=== PATIENT | male | born 1965 | race Caucasian/White ===

== ENCOUNTER 2017-08-19 19:57 | Observation (INO) ==
[2017-08-19] MEDS ORDERED: Levofloxacin 750 MG/150 ML 750 MG/150 ML BAG IVPB ONE (20:47)
[2017-08-19] MEDS ORDERED: Ipratropium/Albuterol Neb 3 ML IH ONE (20:47)
[2017-08-19] MEDS ORDERED: 0.9 % Sodium Chloride 1,000 ML IVC ONE (20:47)
[2017-08-19] MEDS ORDERED: methylPREDNISolone 125 MG/2 ML VIAL IVP ONE (20:47)
--- NOTE | 2017-08-19 20:53 | Emergency Department Note ---
Disposition Clinical Impression: COPD exacerbation Disposition: Admitted As Inpatient Condition: Fair Forms: ED Satisfaction Letter Time of Disposition: 22:33 (Dr Montes [facility]) URI/Sore Throat HPI - General Chief Complaint: ED Fever Stated Complaint: fever, cough Time Seen by Provider: 08/19/17 20:35 Source: patient, family Mode of arrival: ambulatory Limitations: no limitations Nursing Notes Reviewed: Yes Vital Signs Reviewed: Yes - History of Present Illness HPI Narrative: 52-year-old with a history of lung surgery who presents to the emergency room for the past 4 years is had no major upper respiratory complaints. Patient states that he is now having cough congestion shortness of breath patient denies any swelling or edema in the leg states that he has had fever chills wheezing states he can get his air in but can get about he said this could be an exacerbation of his COPD or bronchitis or it could even be pneumonia which she is afraid of because of the fevers and chills. He denies any blurred vision or double vision. He is having heavy rhinorrhea. He denies though diarrhea melena hematochezia hematemesis. He has shortness of breath and coughing with activity he denies history of DVT denies any additional complaints with complete entire review of systems but does state that everything he has tried at home [id number] is not working Pt Subjective Complaint: fever, cough, flu symptoms, rhinorrhea, nasal congestion Onset (ago): day(s) Duration: constant, gradually worsening Severity: moderate Severity scale (1-10): 6 Improves with: nothing Worsens with: nothing If sputum, description: watery Associated symptoms: Reports: fever, chills, myalgias, rhinorrhea, nasal congestion, sore throat, cough, shortness of breath. Denies: voice changes, diaphoresis, headache, stiff neck, chest pain, abdominal pain, nausea, vomiting , diarrhea, dysuria, rash, epistaxis, ear pain Treatments prior to arrival: none - Related Data Home Medications Medication Instructions Recorded Confirmed Gabapentin [Neurontin] 800 mg PO TID 03/17/15 08/19/17 Ibuprofen [Motrin] 800 mg PO Q8HR PRN 03/17/15 08/19/17 clonazePAM [Klonopin] 2 mg PO TID 03/17/15 08/19/17 Allergies Allergy/AdvReac Type Severity Reaction Status Date / Time Hydromorphone [From Dilaudid] AdvReac Catherineinati Verified 08/19/17 20:34 ng All systems ED: reviewed and negative except as stated. Review of Systems: As Per HPI Constitutional: Denies: fever, chills, weakness Eyes: Denies: eye pain, eye discharge ENT ED: Denies: ear pain, throat pain Cardiovascular: Denies: chest pain, palpitations, dyspnea on exertion Respiratory: Reports: cough, dyspnea, wheezes Gastrointestinal: Denies: abdominal pain, nausea, vomiting Genitourinary: Denies: urgency, dysuria, frequency Musculoskeletal: Denies: back pain, neck pain Integumentary: Denies: rash, abrasion, lesions Neurological: Denies: headache, weakness Psychiatric: Denies: anxiety, depression Endocrine: Denies: fatigue, heat or cold intolerance Hematological/Lymphatic: Denies: easy bleeding Allergic/Immunologic: Denies: facial swelling URI PMH - Past Medical History Medical history: Reports: GERD, hypertension, pulmonary embolus, other Surgical history: Reports: orthopedic, other (right tibial/fibula fracture, left arm fracture, RLE MRSA infection), other (right lung surgery (empyema, blood clot)) Psychiatric history: Reports: anxiety - Social History Smoking Status: Current every day smoker Alcohol use: Reports: none Drug use: Reports: none Physical Exam - General Limitations: no limitations General appearance: alert, anxious, in distress (mild) - Head Head exam: atraumatic, normocephalic, normal inspection - Eye Eye exam: Present: normal appearance, PERRL, EOMI - ENT ENT exam: normal exam, normal oropharynx, mucous membranes moist, TM's normal bilaterally, normal external ear exam - Neck Neck exam: Present: normal inspection, full ROM, trachea midline - Chest Chest inspection: Present: normal inspection, symmetric chest wall rise - Respiratory Respiratory exam: Present: wheezes, accessory muscle use, prolonged expiratory phase - Cardiovascular Cardiovascular exam: Present: regular rate, normal rhythm, normal heart sounds - Abdominal Exam Abdominal exam: Present: soft, Non-Tender, normal bowel sounds. Absent: mass, pulsatile mass - Extremities Exam Extremities exam: Present: normal inspection, full ROM, normal capillary refill. Absent: tenderness, pedal edema, joint swelling, calf tenderness - Expanded Lower Extremity Exam Neurovascular/Tendon exam: Present: normal capillary refill, normal fine/light touch Gait: observed and normal - Back Exam Back exam: Present: normal inspection, full ROM. Absent: muscle spasm - Neurological Exam Neurological exam: Present: alert, oriented X3, CN II-XII intact, normal gait - Psychiatric Psychiatric exam: Present: normal affect, normal mood, anxious - Skin Skin exam: Present: warm, dry, intact, normal color Course Course Narrative: Patient was seen and examined chest x-ray and labs were ordered patient received a DuoNeb treatment with little improvement of his respiratory still very tight wheezy but was able to rest a little bit with that he was when he first presented. Patient is having no chest pain no chest pressure but is unable to catch his breath and appears that he is having exacerbation of his COPD and needs IV steroids and bronchodilator for treatment to help break it open so that he can breathe easier due to the fact he has some significantly diminished breath sounds as result we will start talked to Dr. Montes for admission and orders will be done Vital Signs Temperature 99.6 F 08/19/17 20:35 Pulse Rate 96 08/19/17 20:35 Respiratory Rate 16 08/19/17 20:35 Blood Pressure 167/96 08/19/17 20:35 O2 Sat by Pulse Oximetry 95 08/19/17 20:35 Temperature 99.6 F 08/19/17 20:35 Pulse Rate 96 08/19/17 20:35 Respiratory Rate 16 08/19/17 20:35 Blood Pressure 167/96 08/19/17 20:35 O2 Sat by Pulse Oximetry 95 08/19/17 20:35 Oxygen Delivery Oxygen Delivery Room Air Upper Respiratory Infection - Differential Diagnosis Differential Diagnosis: Likely: upper respiratory infection, other viral infection, bronchitis, influenza, pneumonia (vs copd) - Medical Records Medical records reviewed: Yes I reviewed the patient's medical records. - Lab Data Lab results reviewed: Yes I reviewed the patient's lab results. Result diagrams: 08/19/17 21:20 08/19/17 21:20 Lab Results 08/19/17 08/19/17 08/19/17 Range/Units 21:20 21:20 21:20 WBC 6.7 (4.3-11.1) K/mcL RBC 4.62 (4.19-5.50) M/mcL Hgb 14.6 (12.9-16.9) g/dL Hct 42.4 (37.5-50.1) % MCV 91.8 (83.0-100.0) fL MCH 31.6 (28.0-33.3) pg MCHC 34.4 (31.6-35.5) g/dL RDW 13.0 (11.5-14.5) % Plt Count 251 (140-400) K/mcL MPV 9.5 (9.4-12.4) fL Immature Gran % 0.1 (0-4) % Seg Neutrophils % 60.5 % Lymphocytes % 25.2 % Monocytes % 10.8 % Eosinophils % 2.7 % Basophils % 0.7 % Neutrophils # 4.0 (1.6-8.9) K/mcL Lymphocytes # 1.7 (0.6-4.6) K/mcL Monocytes # 0.7 (0.0-1.3) K/mcL Eosinophils # 0.2 (0.0-0.6) K/mcL Basophils # 0.1 (0.0-0.2) K/mcL PT 12.6 H (9.4-12.1) Seconds INR 1.2 APTT 29.3 (26.0-36.0) Seconds Sodium 142 (136-145) mEq/L Potassium 3.9 (3.5-5.1) mEq/L Chloride 102 (98-107) mEq/L Carbon Dioxide 33 H (23-29) mEq/L BUN 12 (6-20) mg/dL Creatinine 0.97 (0.70-1.30) mg/dL Est GFR ( Amer) > 60 (> 60) Est GFR (Non-Af Amer) > 60 (> 60) BUN/Creatinine Ratio 12 (6-26) Glucose 97 (70-105) mg/dL Calculated Osmolality 294 (280-300) Lactic Acid (0.5-2.2) mmol/L Calcium 10.0 (8.6-10.3) mg/dL 08/19/17 Range/Units 21:20 WBC (4.3-11.1) K/mcL RBC (4.19-5.50) M/mcL Hgb (12.9-16.9) g/dL Hct (37.5-50.1) % MCV (83.0-100.0) fL MCH (28.0-33.3) pg MCHC (31.6-35.5) g/dL RDW (11.5-14.5) % Plt Count (140-400) K/mcL MPV (9.4-12.4) fL Immature Gran % (0-4) % Seg Neutrophils % % Lymphocytes % % Monocytes % % Eosinophils % % Basophils % % Neutrophils # (1.6-8.9) K/mcL Lymphocytes # (0.6-4.6) K/mcL Monocytes # (0.0-1.3) K/mcL Eosinophils # (0.0-0.6) K/mcL Basophils # (0.0-0.2) K/mcL PT (9.4-12.1) Seconds INR APTT (26.0-36.0) Seconds Sodium (136-145) mEq/L Potassium (3.5-5.1) mEq/L Chloride (98-107) mEq/L Carbon Dioxide (23-29) mEq/L BUN (6-20) mg/dL Creatinine (0.70-1.30) mg/dL Est GFR ( Amer) (> 60) Est GFR (Non-Af Amer) (> 60) BUN/Creatinine Ratio (6-26) Glucose (70-105) mg/dL Calculated Osmolality (280-300) Lactic Acid 1.5 (0.5-2.2) mmol/L Calcium (8.6-10.3) mg/dL - Radiology Data Radiology results reviewed: Yes I reviewed the patient's radiology results. ITS Impressions Chest X-Ray 08/19/17 20:32 IMPRESSION: Reticular changes at the right lung base, chronic. No evidence of acute cardiopulmonary disease. D/ / Carey Arceo MD / Carey Arceo MD Interpreting Provider: Carey Arceo MD Critical Care Time Critical Care Time: No
[2017-08-19 21:30] LABS: Basophils # 0.1 K/mcL (0.0-0.2); Basophils % 0.7 %; Eosinophils # 0.2 K/mcL (0.0-0.6); Eosinophils % 2.7 %; Hematocrit 42.4 % (37.5-50.1); Hemoglobin 14.6 g/dL (12.9-16.9); Immature Granulocytes % 0.1 % (0-4); Lymphocytes # 1.7 K/mcL (0.6-4.6); Lymphocytes % 25.2 %; Mean Corpuscular HGB Conc 34.4 g/dL (31.6-35.5); Mean Corpuscular Hemoglobin 31.6 pg (28.0-33.3); Mean Corpuscular Volume 91.8 fL (83.0-100.0); Mean Platelet Volume 9.5 fL (9.4-12.4); Monocytes # 0.7 K/mcL (0.0-1.3); Monocytes % 10.8 %; Platelet Count 251 K/mcL (140-400); Red Blood Count 4.62 M/mcL (4.19-5.50); Segmented Neutrophils % 60.5 %
[2017-08-19 21:37] LABS: INR 1.2; Prothrombin Time 12.6 Seconds (9.4-12.1)
[2017-08-19 21:40] LABS: Activated Partial Thrombo Time 29.3 Seconds (26.0-36.0)
[2017-08-19 21:43] LABS: BUN/Creatinine Ratio 12 (6-26); Blood Urea Nitrogen 12 mg/dL (6-20); Carbon Dioxide 33 mEq/L (23-29); Chloride 102 mEq/L (98-107); Glucose 97 mg/dL (70-105); Osmolality,Calculated 294 (280-300); Potassium 3.9 mEq/L (3.5-5.1); Sodium 142 mEq/L (136-145); eGFR For African Americans > 60 (> 60); eGFR For Non-African Americans > 60 (> 60)
[2017-08-19] MEDS ORDERED: Albuterol 2.5 MG/3 ML NEBULIZER IH PRN (23:02)
[2017-08-19] MEDS ORDERED: Naloxone 0.4 MG/ML INJ IVP PRN (23:02)
[2017-08-19] MEDS ORDERED: 0.9 % Sodium Chloride 1,000 ML IVC SCH (23:15)
[2017-08-20] MEDS ORDERED: Mag Hydrox/Al Hydrox/Simeth 30 ML UDC PO PRN (01:08)
[2017-08-20 04:40] VITALS: BP 118/70
[2017-08-20] MEDS ORDERED: Ipratropium/Albuterol Neb 3 ML IH SCH (05:00)
--- NOTE | 2017-08-20 05:08 | Internal Med Progress Note ---
Date of Encounter: 08/20/17 Time of Encounter: 04:58 - Assessment and plan (1) COPD exacerbation Current Visit: Yes Status: Acute Assessment and plan: When patient had been awoken by nursing when she went to get the vital signs apparently the patient 780 degree attitude turned from when he was here in the emergency room when he was in the emergency room he was pleasant he was comfortable with the plans as had been arranged he was thankful that we were admitting him when I went down to try to talk to him about why he was leaving AGAINST MEDICAL ADVICE he said that nobody paid attention to arrange that nobody was coming in checking on him. he had been written for medication but he was sleeping thus nursing staff did not wake him. When I personally tried to talk to him about what it occurred he said this was the worst care that he had ever received I tried to get him to explain what occurred or what had happened and he would not talk he stormed out past me and a behavior that was not present when he originally presented to the emergency room where he was very comfortable and thankful when he was in the emergency room. I did advise the patient as he walked away that he could return at any time for further care evaluation management and treatment that he was still audibly wheezing as he left [facility]. - Time Spent With Patient Total time spent is greater than 50% in coordination of care (as documented) at patient's floor/unit and/or counseling patient: less than 15 minutes (Patient was leaving as I got to the room less than 4mins after recieving the call from nursing) - Subjective Interval history: Patient wants to leave AMA. Patient reportedly has been sleeping all night have asked for some Maalox for some GI upset. When the nurse had gone in to give it to him he was sleeping at that time as result the patient just woke up states that he is leaving he has been disrespected patient states that he has not been checked on during the course of the night. There have been no calls while he was here in the hospital other than to add some Mylanta for some GI upset that he was complaining patient states that he no longer has any respiratory issues and he is going home and he is walking home. As result patient has left against medical advise - Constitutional Vitals: Temp Pulse Resp BP Pulse Ox 97.9 F 76 15 118/70 93 08/20/17 04:00 08/20/17 04:00 08/20/17 04:00 08/20/17 04:00 08/20/17 04:00 Internal Medicine: Result - Labs CBC & Chem 7: 08/19/17 21:20 08/19/17 21:20 - ABG Interpretation ABG results: PT/INR, D-dimer PT 12.6 Seconds (9.4-12.1) H 08/19/17 21:20 - VTE Documentation of Mechanical Device: Graduated compression elastic hosiery Consult Discharge Plan - Plan Referrals: Phil Gonsales MD [Primary Care Provider] -
[2017-08-20] MEDS ORDERED: MethylPREDNISolone 40 MG/ML VIAL IVP SCH (06:00)
--- NOTE | 2017-08-20 09:44 | Internal Med History&Physical ---
Date of Encounter: 08/20/17 Time of Encounter: 09:42 Assessment and Plan (1) COPD exacerbation Status: Acute Left AMA. Internal Medicine - H&P: HPI Chief complaint: Dyspnea Admitted From: Home History of present illness: Mr. Bullock is a 52 year old male who left AMA before seen by me. Past Med Surg Social Fam HX - Past Medical History Medical history: arthritis, asthma, CHF, COPD, DVT, GERD, hyperlipidemia, hypertension, kidney stones, migraine, osteoporosis, pulmonary embolus, RA, other Psychiatric history: anxiety - Past Surgical History Surgical History: cholecystectomy, orthopedic, other, other - Social History Smoking Status: Current every day smoker Packs per day: 3/4 cigerattes Smokeless Tobacco Status: No Alcohol use: none Drug use: none - Family History Mother Living Status: Hx Family Cardiac Disorders: Yes (CHF, Scarlet fever as a child) Father Living Status: Hx Family Cardiac Disorders: Yes Hx Family Neurologic Disorders: Yes (CVA) Internal Medicine - H&P: Meds Gabapentin [Neurontin] 800 mg PO TID 03/17/15 [History] Ibuprofen [Motrin] 800 mg PO Q8HR PRN 03/17/15 [History] clonazePAM [Klonopin] 2 mg PO TID 03/17/15 [History] 3 Allergy/AdvReac Type Severity Reaction Status Date / Time Hydromorphone [From Dilaudid] AdvReac Hallucinati Verified 08/19/17 20:34 ng All Systems PM: A 10-system review of systems was performed and is negative for pertinent findings except as documented above in the HPI. - Constitutional Vitals: Temp Pulse Resp BP Pulse Ox 97.9 F 76 15 118/70 93 08/20/17 04:00 08/20/17 04:00 08/20/17 04:00 08/20/17 04:00 08/20/17 04:00 Internal Med - H&P Results - Labs CBC & Chem 7: 08/19/17 21:20 08/19/17 21:20 - VTE Documentation of Mechanical Device: Graduated compression elastic hosiery
[2017-08-20] MEDS ORDERED: Levofloxacin 500 MG/100 ML 500 MG/100 ML BAG IVPB SCH (16:00)
== END 2017-08-20 05:05 | disposition left against medical advice (07) ==
LOC: INPGRE 19:57 → EMEROOGRE 19:57 → INPGRE 08-20 00:14